=== PATIENT | female | born 1950 | race Caucasian/White ===

== ENCOUNTER → 2018-10-30 | Day surgery (SDC) | payer MEDICARE, BC ==
[2018-10-29 12:59] VITALS: BMI 38.8
[2018-10-30 08:31] LABS: Estimated GFR-MDRD - POC Greater than 90
[2018-10-30 09:44] LABS: Hemoglobin 14.7 g/dL (12.0-16.0)
[2018-10-30 09:54] LABS: Anion Gap 11 mmol/L (10-20); BUN (Urea Nitrogen) 10 mg/dL (9.8-20.1); Calc. Creatinine Clearance 108 mL/min (70-130); Calcium 10.4 mg/dL (7.8-10.44); Carbon Dioxide 21 mmol/L (23-31); Chloride 108 mmol/L (98-107); Estimated GFR-MDRD 81; Glucose 105 mg/dL (80-115); Sodium 136 mmol/L (136-145)
--- NOTE | 2018-10-30 10:27 | CT ---
CT NECK WITH AND WITHOUT CONTRAST: Technique: Multiple axial tomograms were obtained through the neck without IV enhancement. This was f ollowed by post contrast images through the neck with multiplanar reconstruction. Indications: Hyperparathyroidism. Assess for parathyroid adenoma. Correlation made to ultrasound of 08-18-18. That exam described a nodule along the posterior margin of the left lobe of the thyroid. Multinodular thyroid gland was described including complex cystic nodu les in the right lobe of the thyroid. FINDINGS: On the noncontrast images there is a nonenhancing mass posterior to the left lobe of the thyroid cali esponding to the ultrasound lesion. This measures approximately 1.5 cm AP dimension in the axial plan e. This nodule shows intense peripheral enhancement on the post contrast exam. There is a central are a of non-enhancement which may represent central necrosis. In the sagittal plane this nodule measures 2.2 cm craniocaudal x approximately 1 cm AP dimension. The thyroid gland shows numerous low density nodules in the right lobe, the largest measuring up to 2 cm. This corresponds to the ultrasound findings. There are small low density nodules in the left lob e which are subcentimeter. Parotid glands, submandibular glands unremarkable. Nasopharynx appears symmetric. Oropharynx appears unremarkable and symmetric. Lingular tonsil on the left is slightly asymmetric with the right, producing some slight asymmetry in the left vallecular region. This could be assessed with direct evaluation. Hypopharynx and larynx otherwise unremarkable. Nonspecific level I lymph nodes in the submandibular region measuring up to 1.0 cm on the right. Level II lymph nodes are mildly prominent but are symmetric bilaterally measuring approximately 1.2 c m on both sides. No significant level III, IV, or V lymph nodes. Shirt Folding [employer] space, parapharyngeal space, and retropharyngeal space unremarkable. Carotid space unremarkable. No evidence of carotid artery stenosis. Degenerative changes in the cervical spine, most prominent at the C5-6 level with disc narrowing and degenerative spurring. Paranasal sinuses and mastoids well aerated and clear. IMPRESSION: 1. There is enhancing nodule posterior to the left lobe of the thyroid which would meet criteria for parathyroid mass/adenoma. This corresponds to the lesion seen on recent thyroid ultrasound. 2. The thyroid gland is multi-nondual with large cystic nodules in the right lobe corresponding to th e recent ultrasound findings . 3. Nonspecific level I and II lymph nodes. POS: [facility]
== END ==
LOC: SDC 07:59
PROVIDERS: ATTEND Specialist
DX: E04.1 Nontoxic single thyroid nodule (principal); E21.3 Hyperparathyroidism, unspecified; I10 Essential (primary) hypertension; M81.0 Age-related osteoporosis without current pathological fracture; Z79.899 Other long term (current) drug therapy; Z53.8 Procedure and treatment not carried out for other reasons
CPT/HCPCS: 36415; 70492; 80048; 82565; 85014; 85018; 93005; 93010